=== PATIENT | female | born 1940 | race Caucasian/White ===

== ENCOUNTER 2019-06-05 16:09 | Inpatient (IN) ==
[2019-06-05 17:09] LABS: Basophils % 0.2 %; Eosinophils % 0.4 %; Hemoglobin 10.5 g/dL (11.5-15.4); Immature Granulocytes % 0.2 % (0-4); Lymphocytes % 20.4 %; Mean Corpuscular HGB Conc 30.9 g/dL (31.6-35.5); Mean Corpuscular Hemoglobin 24.9 pg (28.0-33.3); Mean Corpuscular Volume 80.6 fL (83.0-100.0); Mean Platelet Volume 11.2 fL (9.4-12.4); Monocytes # 0.4 K/mcL (0.0-1.3); Monocytes % 8.6 %; Neutrophils # 3.4 K/mcL (1.6-8.9); Platelet Count 127 K/mcL (140-400); Red Blood Count 4.22 M/mcL (3.82-4.97); Red Cell Distribution Width 17.2 % (11.5-14.5); Segmented Neutrophils % 70.2 %; White Blood Count 4.9 K/mcL (4.3-11.1)
[2019-06-05 17:18] LABS: INR 1.3; Prothrombin Time 15.3 Seconds (9.4-12.1)
[2019-06-05 17:23] LABS: Activated Partial Thrombo Time 16.6 Seconds (26.0-36.0)
[2019-06-05 17:30] LABS: Blood Urea Nitrogen 20 mg/dL (8-23); Carbon Dioxide 26 mEq/L (23-29); Chloride 103 mEq/L (98-107); Glucose 145 mg/dL (70-105); Osmolality,Calculated 289 (280-300); Potassium 3.8 mEq/L (3.5-5.1); Sodium 137 mEq/L (136-145); Troponin I < 0.03 ng/mL (< 0.04)
[2019-06-05 17:37] LABS: BUN/Creatinine Ratio 19 (6-26); eGFR For African Americans 59 (> 60); eGFR For Non-African Americans 49 (> 60)
[2019-06-05] MEDS ORDERED: *HR* Heparin 5,000 UNIT/ML VIAL IVP PRN ×2 (18:44)
[2019-06-05] MEDS ORDERED: *HR* Heparin 5,000 UNIT/ML VIAL IVP ONE (18:44)
[2019-06-05] MEDS ORDERED: Heparin 25,000 UNIT/250 ML D5W 25,000 UNIT/250 ML IV.SOLN IVC SCH (18:45)
[2019-06-05 19:17] LABS: Bilirubin,Urine Small (Negative); Blood,Urine Negative (Negative); Clarity,Urine Clear (Clear); Color,Urine Yellow (Yellow); Glucose,Urine (UA) Normal (Normal); Ketones,Urine Trace mg/dL (Negative); Leukocyte Esterase,Urine Negative (Negative); Nitrite,Urine Negative (Negative); PH,Urine 5.5 pH Units (5.0-8.0); Protein,Urine 30 mg/dL (Neg-Trace); Specific Gravity,Urine > 1.030 (1.010-1.025); Urobilinogen,Urine Normal (Normal)
[2019-06-05 19:21] LABS: Bacteria,Urine None Seen per hpf (None-Few); Hyaline Casts,Urine None Seen per lpf (None-Few); Squamous Epithelial Cell,Urine Many per lpf (None-Few)
[2019-06-05 19:31] LABS: Mucus,Urine Few (Few)
[2019-06-05] MEDS ORDERED: Naloxone 0.4 MG/ML INJ IVP PRN (22:09)
[2019-06-06 02:34] LABS: Hematocrit 32.6 % (35.3-44.9); Mean Corpuscular HGB Conc 30.7 g/dL (31.6-35.5); Mean Corpuscular Hemoglobin 25.1 pg (28.0-33.3); Mean Corpuscular Volume 81.7 fL (83.0-100.0); Mean Platelet Volume 10.6 fL (9.4-12.4); Platelet Count 104 K/mcL (140-400); Red Blood Count 3.99 M/mcL (3.82-4.97); Red Cell Distribution Width 17.4 % (11.5-14.5); White Blood Count 4.9 K/mcL (4.3-11.1)
[2019-06-06 02:51] LABS: % Iron Saturation 7 % (15-50); Alanine Aminotransferase 10 Units/L (7-52); Albumin 3.3 g/dL (3.5-5.7); Albumin/Globulin Ratio 1.2 (1.1-2.2); Alkaline Phosphatase 57 Units/L (34-104); Aspartate Amino Transferase 17 Units/L (13-39); BUN/Creatinine Ratio 18 (6-26); Bilirubin,Total 0.8 mg/dL (0.3-1.0); Blood Urea Nitrogen 18 mg/dL (8-23); Calcium 8.6 mg/dL (8.6-10.3); Carbon Dioxide 25 mEq/L (23-29); Chloride 103 mEq/L (98-107); Globulin 2.7 g/dL (2.4-3.5); Glucose 124 mg/dL (70-105); Iron 17 mcg/dL (50-170); Osmolality,Calculated 289 (280-300); Potassium 3.5 mEq/L (3.5-5.1); Sodium 138 mEq/L (136-145); Transferrin 172 mg/dL (203-362); eGFR For African Americans > 60 (> 60); eGFR For Non-African Americans 54 (> 60)
[2019-06-06 03:09] LABS: Ferritin 192 ng/mL (10-120)
[2019-06-06] MEDS ORDERED: Ondansetron 4 MG/2 ML VIAL IVP PRN (06:46)
[2019-06-06 07:52] LABS: Estimated Average Glucose 154 mg/dl
[2019-06-06] MEDS ORDERED: *HR* LORazepam 0.5 MG TABLET PO PRN (07:56)
[2019-06-06] MEDS: Diltiazem SR (12hr) 60 MG CAPSULE PO SCH ×2 (10:47→20:36)
[2019-06-06] MEDS: Furosemide 40 MG/4 ML VIAL IVP SCH (10:54)
[2019-06-06] MEDS ORDERED: *HR* Rivaroxaban 15 MG TABLET PO ONE (12:18)
[2019-06-06] MEDS ORDERED: *HR* Dextrose 50 % in Water (Syg) 50 ML SYRINGE IVP PRN (12:34)
[2019-06-06] MEDS ORDERED: D5% in Water 1,000 ML IVC PRN (12:34)
[2019-06-06] MEDS ORDERED: Dextrose Gel 15 GM/37.5 ML TUBE PO PRN ×2 (12:34)
[2019-06-06] MEDS ORDERED: Acetaminophen 325 MG TABLET PO PRN (13:57)
[2019-06-06] MEDS: Insulin LISPRO 300 UNITS/3 ML VIAL SQ SCH (17:01)
[2019-06-06] MEDS: *HR* Acetaminophen w/Cod 300-30 mg 1 TAB TABLET PO PRN (20:35)
[2019-06-06] MEDS ORDERED: Insulin DETEMIR 100 UNIT/ML X5UNITS SQ SCH (21:00)
[2019-06-06] MEDS: *HR* Rivaroxaban 15 MG TABLET PO SCH (23:27)
[2019-06-07 05:40] LABS: Calcium 9.1 mg/dL (8.6-10.3); Magnesium 1.9 mg/dL (1.6-2.6); Phosphorous 3.6 mg/dL (2.7-4.5); Potassium 3.7 mEq/L (3.5-5.1)
[2019-06-07] MEDS: Insulin LISPRO 300 UNITS/3 ML VIAL SQ SCH ×3 (07:28→15:55)
[2019-06-07] MEDS: *HR* Rivaroxaban 15 MG TABLET PO SCH (07:52)
[2019-06-07] MEDS: Diltiazem SR (12hr) 60 MG CAPSULE PO SCH (07:52)
[2019-06-07] MEDS: Furosemide 40 MG/4 ML VIAL IVP SCH (07:53)
[2019-06-07 10:35] VITALS: BP 121/73
[2019-06-07] MEDS ORDERED: FLU Vac QV 19-20 (6Month+)/PF 0.5 ML SYRINGE IM ONE (10:50)
[2019-06-07] MEDS: *HR* Acetaminophen w/Cod 300-30 mg 1 TAB TABLET PO PRN (11:55)
[2019-06-27] MEDS ORDERED: *HR* Rivaroxaban 10 MG TABLET PO SCH (17:00)
== END 2019-06-07 16:47 | disposition home or self-care (01) | DRG 300 ==
LOC: EMEROOARM 16:09 → 2ANU 16:09 → SUATTDRO 06-06 09:53
PROVIDERS: ADMIT Internal Medicine; ATTEND Internal Medicine

== ENCOUNTER 2020-04-14 07:30 | Observation (INO) ==
[2020-04-14 08:37] LABS: Basophils % 0.3 %
[2020-04-14 08:38] LABS: Immature Platelets 5.9 % (1.1-6.1); Mean Corpuscular HGB Conc 29.5 g/dL (31.6-35.5); Red Cell Distribution Width 21.4 % (11.5-14.5)
[2020-04-14 08:44] LABS: Eosinophils # 0.1 K/mcL (0.0-0.6); Eosinophils % 0.8 %; Hematocrit 40.4 % (35.3-44.9); Hemoglobin 11.9 g/dL (11.5-15.4); Immature Granulocytes % 0.5 % (0-4); Lymphocytes # 1.1 K/mcL (0.6-4.6); Mean Corpuscular Hemoglobin 26.3 pg (28.0-33.3); Mean Corpuscular Volume 89.2 fL (83.0-100.0); Mean Platelet Volume 9.3 fL (9.4-12.4); Monocytes # 0.5 K/mcL (0.0-1.3); Monocytes % 6.6 %; Platelet Count 156 K/mcL (140-400); Red Blood Count 4.53 M/mcL (3.82-4.97); Segmented Neutrophils % 77.8 %; White Blood Count 7.9 K/mcL (4.3-11.1)
[2020-04-14 08:56] LABS: Bilirubin,Urine Negative (Negative); Blood,Urine Small (Negative); Clarity,Urine Clear (Clear); Color,Urine Yellow (Yellow); Glucose,Urine (UA) Normal (Normal); Ketones,Urine 10 mg/dL (Negative); Leukocyte Esterase,Urine Trace (Negative); Mucus,Urine Few per lpf (None-Few); Nitrite,Urine Negative (Negative); Protein,Urine 70 mg/dL (Neg-Trace); Specific Gravity,Urine > 1.030 (1.010-1.025); Squamous Epithelial Cell,Urine Few per hpf (None-Few); Urobilinogen,Urine Normal (Normal); WBC,Urine 0-3 per hpf (0-3)
[2020-04-14 09:24] LABS: Alanine Aminotransferase 6 Units/L (7-52); Albumin/Globulin Ratio 1.5 (1.1-2.2); Alkaline Phosphatase 78 Units/L (34-104); Amylase 21 Units/L (29-103); Anisocytosis 1+ (Not Present); Aspartate Amino Transferase 11 Units/L (13-39); BUN/Creatinine Ratio 25 (6-26); Bilirubin,Direct 0.1 mg/dL (0.0-0.2); Bilirubin,Indirect 0.4 mg/dL (0.0-1.0); Bilirubin,Total 0.5 mg/dL (0.3-1.0); Blood Urea Nitrogen 27 mg/dL (8-23); Calcium 9.1 mg/dL (8.6-10.3); Carbon Dioxide 25 mEq/L (23-29); Chloride 104 mEq/L (98-107); Globulin 2.7 g/dL (2.4-3.5); Glucose 128 mg/dL (70-105); Lipase < 3 Units/L (11-82); Neutrophils # 6.2 K/mcL (1.6-8.9); Osmolality,Calculated 291 (280-300); Platelet Estimate Normal (Normal); Potassium 3.9 mEq/L (3.5-5.1); Sodium 137 mEq/L (136-145); Total Protein 6.7 g/dL (6.4-8.9); Troponin I < 0.03 ng/mL (< 0.04); eGFR For African Americans 59 (> 60); eGFR For Non-African Americans 48 (> 60)
[2020-04-14] MEDS ORDERED: MetroNIDAZOLE 500 MG/100 ML 500 MG/100 ML BAG IVPB ONE (10:20)
[2020-04-14 10:39] LABS: INR 1.4; Prothrombin Time 16.4 Seconds (9.4-12.1)
[2020-04-14 10:42] LABS: Activated Partial Thrombo Time 29.9 Seconds (26.0-36.0)
[2020-04-14] MEDS ORDERED: Milk and Molasses Enema 200 ML RC ONE (10:54)
[2020-04-14] MEDS ORDERED: Naloxone 0.4 MG/ML INJ IVP PRN (11:29)
[2020-04-14] MEDS ORDERED: *HR* Promethazine 25 MG/ML VIAL IVP PRN (12:21)
[2020-04-14] MEDS: polyethylene glycoL 3350 17 GM POWD.PACK PO SCH (13:02)
[2020-04-14] MEDS: MetroNIDAZOLE 500 MG/100 ML 500 MG/100 ML BAG IVPB SCH (15:59)
[2020-04-14] MEDS: Ondansetron 4 MG/2 ML VIAL IVP PRN (19:53)
[2020-04-14] MEDS: DilTIAZem CD (24hr) 120 MG CAP.ER.24H PO SCH (21:48)
[2020-04-15] MEDS: MetroNIDAZOLE 500 MG/100 ML 500 MG/100 ML BAG IVPB SCH ×4 (00:09→23:53)
[2020-04-15 04:01] LABS: Basophils % 0.1 %; Eosinophils # 0.1 K/mcL (0.0-0.6); Eosinophils % 0.7 %; Hematocrit 36.7 % (35.3-44.9); Hemoglobin 11.1 g/dL (11.5-15.4); Immature Granulocytes % 0.3 % (0-4); Lymphocytes # 1.7 K/mcL (0.6-4.6); Lymphocytes % 22.7 %; Mean Corpuscular HGB Conc 30.2 g/dL (31.6-35.5); Mean Corpuscular Hemoglobin 25.8 pg (28.0-33.3); Mean Corpuscular Volume 85.2 fL (83.0-100.0); Mean Platelet Volume 9.7 fL (9.4-12.4); Monocytes # 0.5 K/mcL (0.0-1.3); Monocytes % 7.2 %; Neutrophils # 5.2 K/mcL (1.6-8.9); Platelet Count 171 K/mcL (140-400); Red Blood Count 4.31 M/mcL (3.82-4.97); Red Cell Distribution Width 21.2 % (11.5-14.5); White Blood Count 7.5 K/mcL (4.3-11.1)
[2020-04-15 04:16] LABS: BUN/Creatinine Ratio 20 (6-26); Blood Urea Nitrogen 20 mg/dL (8-23); Calcium 8.8 mg/dL (8.6-10.3); Carbon Dioxide 27 mEq/L (23-29); Chloride 101 mEq/L (98-107); Glucose 115 mg/dL (70-105); Magnesium 1.8 mg/dL (1.6-2.6); Osmolality,Calculated 286 (280-300); Phosphorous 2.6 mg/dL (2.7-4.5); Potassium 3.7 mEq/L (3.5-5.1); Sodium 136 mEq/L (136-145); eGFR For African Americans > 60 (> 60); eGFR For Non-African Americans 55 (> 60)
[2020-04-15] MEDS: polyethylene glycoL 3350 17 GM POWD.PACK PO SCH (08:48)
[2020-04-15] MEDS: *HR* Rivaroxaban 10 MG TABLET PO SCH (08:48)
[2020-04-15] MEDS: Aspirin Enteric Coated 81 MG Tablet PO SCH (08:48)
[2020-04-15] MEDS: DilTIAZem CD (24hr) 120 MG CAP.ER.24H PO SCH ×2 (08:48→21:07)
[2020-04-15] MEDS: paricalcitoL 1 MCG CAPSULE PO SCH (08:48)
[2020-04-15] MEDS ORDERED: Milk and Molasses Enema 200 ML RC ONE (15:29)
[2020-04-15] MEDS: Sennosides/Docusate Sodium TABLET PO SCH (21:07)
[2020-04-15] MEDS: MOM Conc 10 ML UD.LIQ PO SCH (21:10)
[2020-04-16] MEDS: Ondansetron 4 MG/2 ML VIAL IVP PRN ×2 (05:48→20:56)
[2020-04-16 07:08] LABS: Hemoglobin 11.6 g/dL (11.5-15.4)
[2020-04-16 07:10] LABS: Hematocrit 38.4 % (35.3-44.9); Mean Corpuscular HGB Conc 30.2 g/dL (31.6-35.5); Mean Corpuscular Hemoglobin 25.7 pg (28.0-33.3); Mean Corpuscular Volume 85.1 fL (83.0-100.0); Mean Platelet Volume 10.5 fL (9.4-12.4); Red Blood Count 4.51 M/mcL (3.82-4.97); Red Cell Distribution Width 21.3 % (11.5-14.5); White Blood Count 6.8 K/mcL (4.3-11.1)
[2020-04-16 07:28] LABS: BUN/Creatinine Ratio 21 (6-26); Blood Urea Nitrogen 21 mg/dL (8-23); Calcium 8.8 mg/dL (8.6-10.3); Carbon Dioxide 23 mEq/L (23-29); Chloride 99 mEq/L (98-107); Glucose 110 mg/dL (70-105); Magnesium 1.8 mg/dL (1.6-2.6); Osmolality,Calculated 282 (280-300); Phosphorous 2.8 mg/dL (2.7-4.5); Potassium 3.7 mEq/L (3.5-5.1); Sodium 134 mEq/L (136-145); eGFR For African Americans > 60 (> 60); eGFR For Non-African Americans 53 (> 60)
[2020-04-16] MEDS: *HR* Rivaroxaban 10 MG TABLET PO SCH (07:36)
[2020-04-16] MEDS: Aspirin Enteric Coated 81 MG Tablet PO SCH (07:36)
[2020-04-16] MEDS: DilTIAZem CD (24hr) 120 MG CAP.ER.24H PO SCH ×2 (07:36→21:13)
[2020-04-16] MEDS: Sennosides/Docusate Sodium TABLET PO SCH ×2 (07:36→21:13)
[2020-04-16] MEDS: MOM Conc 10 ML UD.LIQ PO SCH (07:37)
[2020-04-16] MEDS: polyethylene glycoL 3350 17 GM POWD.PACK PO SCH (07:40)
[2020-04-16] MEDS: paricalcitoL 1 MCG CAPSULE PO SCH (07:42)
[2020-04-16] MEDS: MetroNIDAZOLE 500 MG/100 ML 500 MG/100 ML BAG IVPB SCH ×3 (07:48→23:35)
[2020-04-16] MEDS ORDERED: *HR* OxyCODONE Immed Rel 5 MG TABLET PO ONE (23:27)
[2020-04-17 04:41] LABS: Hematocrit 34.5 % (35.3-44.9); Hemoglobin 10.4 g/dL (11.5-15.4); Mean Corpuscular HGB Conc 30.1 g/dL (31.6-35.5); Mean Corpuscular Hemoglobin 25.6 pg (28.0-33.3); Mean Corpuscular Volume 84.8 fL (83.0-100.0); Mean Platelet Volume 9.1 fL (9.4-12.4); Platelet Count 199 K/mcL (140-400); Red Blood Count 4.07 M/mcL (3.82-4.97); Red Cell Distribution Width 21.2 % (11.5-14.5); White Blood Count 5.9 K/mcL (4.3-11.1)
[2020-04-17 04:58] LABS: Calcium 8.7 mg/dL (8.6-10.3); Potassium 3.4 mEq/L (3.5-5.1)
[2020-04-17 07:42] VITALS: BP 161/85
[2020-04-17] MEDS: Aspirin Enteric Coated 81 MG Tablet PO SCH (08:07)
[2020-04-17] MEDS: MOM Conc 10 ML UD.LIQ PO SCH ×2 (08:07→08:12)
[2020-04-17] MEDS: DilTIAZem CD (24hr) 120 MG CAP.ER.24H PO SCH (08:07)
[2020-04-17] MEDS: Sennosides/Docusate Sodium TABLET PO SCH (08:07)
[2020-04-17] MEDS: *HR* Rivaroxaban 10 MG TABLET PO SCH (08:07)
[2020-04-17] MEDS: paricalcitoL 1 MCG CAPSULE PO SCH (08:07)
[2020-04-17] MEDS: polyethylene glycoL 3350 17 GM POWD.PACK PO SCH (08:08)
[2020-04-17] MEDS: MetroNIDAZOLE 500 MG/100 ML 500 MG/100 ML BAG IVPB SCH (08:33)
== END 2020-04-17 11:34 | disposition home or self-care (01) ==
LOC: CDU 07:30 → EMEROOARM 07:30 → SUATTDRO 11:54 → CDU 12:28 → 3BNU 04-15 17:50
PROVIDERS: ADMIT Student in an Organized Health Care Education/Training Program; ATTEND Internal Medicine